=== PATIENT | male | born 1955 | race Caucasian/White ===

== ENCOUNTER → 2022-10-09 | Outpatient (CLI) | payer OTHER ==
[2022-10-09 10:16] LABS: Cholesterol 199 mg/dL (< 200); Creatine Kinase IFCC 106 U/L (39-308); HDL Cholesterol 59 mg/dL (40-59); LDL Cholesterol 127 mg/dL (< 100); Triglycerides 128 mg/dL (< 150)
== END | disposition home or self-care (01) ==
LOC: LAB 09:10
PROVIDERS: ATTEND Internal Medicine
DX: E78.5 Hyperlipidemia, unspecified (principal)
CPT/HCPCS: 36415; 82306; 82465; 82550; 83718; 83721; 84439; 84443; 84478

== ENCOUNTER → 2023-04-08 | Outpatient (CLI) | payer OTHER ==
[2023-04-08 09:38] LABS: Alanine Aminotransferase 25 U/L (7-40); Albumin 4.3 g/dL (3.2-4.8); Alkaline Phosphatase 65 U/L (46-116); Anion Gap 5 (5-15); Aspartate Aminotransferase 43 U/L (13-40); BUN/Creatinine Ratio 11.8 (10.0-20.0); Blood Urea Nitrogen 11 mg/dL (9-23); Calcium 9.4 mg/dL (8.5-10.1); Carbon Dioxide 28 mmol/L (20-30); Chloride 106 mmol/L (98-107); Cholesterol 198 mg/dL (< 200); Creatine Kinase IFCC 91 U/L (46-171); Glucose 123 mg/dL (74-106); LDL Cholesterol 123 mg/dL (< 100); Potassium 3.9 mmol/L (3.5-5.1); Sodium 139 mmol/L (136-145); Triglycerides 179 mg/dL (< 150)
[2023-04-08 09:39] LABS: Bilirubin, Total 0.4 mg/dL (0.2-1.0); HDL Cholesterol 51 mg/dL (40-59)
[2023-04-08 09:40] LABS: Total Protein 7.2 g/dL (5.7-8.2)
[2023-04-09 08:07] LABS: PSA Free 0.64 ng/mL; Prostate Specific Antigen 2.5 ng/mL (0.0-4.0)
== END | disposition home or self-care (01) ==
LOC: LAB 08:39
PROVIDERS: ATTEND Internal Medicine
DX: Z12.5 Encounter for screening for malignant neoplasm of prostate (principal); E55.9 Vitamin D deficiency, unspecified; E78.5 Hyperlipidemia, unspecified
CPT/HCPCS: 36415; 80053; 80061; 82306; 82550; 84154

== ENCOUNTER → 2023-06-10 | Outpatient (CLI) | payer OTHER ==
[2023-06-10 11:44] LABS: Alanine Aminotransferase 26 U/L (7-40); Albumin 4.8 g/dL (3.2-4.8); Alkaline Phosphatase 72 U/L (46-116); Anion Gap 6 (5-15); Aspartate Aminotransferase 49 U/L (13-40); BUN/Creatinine Ratio 12.4 (10.0-20.0); Blood Urea Nitrogen 12 mg/dL (9-23); Calcium 10.1 mg/dL (8.5-10.1); Carbon Dioxide 29 mmol/L (20-30); Chloride 104 mmol/L (98-107); Creatine Kinase IFCC 124 U/L (46-171); Glucose 104 mg/dL (74-106); LDL Cholesterol 96 mg/dL (< 100); Potassium 4.1 mmol/L (3.5-5.1); Sodium 139 mmol/L (136-145); Triglycerides 77 mg/dL (< 150)
[2023-06-10 11:45] LABS: Cholesterol 166 mg/dL (< 200); HDL Cholesterol 58 mg/dL (40-59)
[2023-06-10 11:46] LABS: Bilirubin, Total 0.7 mg/dL (0.2-1.0); Total Protein 7.7 g/dL (5.7-8.2)
== END | disposition home or self-care (01) ==
LOC: LAB 09:19
PROVIDERS: ATTEND Internal Medicine
DX: E78.5 Hyperlipidemia, unspecified (principal); E55.9 Vitamin D deficiency, unspecified; R73.9 Hyperglycemia, unspecified
CPT/HCPCS: 36415; 80053; 80061; 82306; 82550; 83036

== ENCOUNTER → 2024-07-13 | Outpatient (CLI) | payer OTHER ==
[2024-07-13 09:54] LABS: Basophils # (auto) 0 10 ^3/uL (0-0.2); Basophils % (auto) 0.5 % (0.0-2.0); Eosinophils # (auto) 0.1 10 ^3/uL (0-0.8); Hematocrit 41.5 % (41.0-53.0); Hemoglobin 14.1 g/dL (13.5-17.5); Lymphocytes # (auto) 1.8 10 ^3/uL (0.4-5.4); Lymphocytes % (auto) 37.7 % (10.0-50.0); Mean Corpuscular Hemoglobin 31.6 pg (28.0-32.0); Monocytes # (auto) 0.4 10 ^3/uL (0-1.3); Monocytes % (auto) 8.7 % (0.0-12.0); Neutrophils # (auto) 2.4 10 ^3/uL (1.6-8.6); Neutrophils % (auto) 51.1 % (37.0-80.0); Nucleated Red Blood Cells % 0.1 %; Platelet Count (auto) 185 10^3/uL (140-450); Red Blood Cells 4.47 10^6/uL (4.5-5.90); Red Cell Distribution Width 13.1 % (11.8-14.3); White Blood Cell 4.8 10^3/uL (4.4-10.8)
[2024-07-13 10:36] LABS: Alanine Aminotransferase 21 U/L (7-40); Albumin 4.5 g/dL (3.2-4.8); Alkaline Phosphatase 68 U/L (46-116); Anion Gap 6 (5-15); BUN/Creatinine Ratio 12.5 (10.0-20.0); Bilirubin, Total 0.4 mg/dL (0.2-1.0); Blood Urea Nitrogen 12 mg/dL (9-23); Calcium 10.2 mg/dL (8.7-10.4); Carbon Dioxide 29 mmol/L (20-31); Chloride 106 mmol/L (98-107); Cholesterol 161 mg/dL (< 200); Creatine Kinase IFCC 108 U/L (46-171); Glucose 96 mg/dL (74-106); LDL Cholesterol 85 mg/dL (< 100); Potassium 4.3 mmol/L (3.5-5.1); Sodium 141 mmol/L (136-145); Total Protein 7.3 g/dL (5.7-8.2); Triglycerides 99 mg/dL (< 150)
[2024-07-13 10:38] LABS: Aspartate Aminotransferase 41 U/L (13-40); HDL Cholesterol 61 mg/dL (40-59)
== END | disposition home or self-care (01) ==
LOC: LAB 09:20
PROVIDERS: ATTEND Internal Medicine
DX: Z12.11 Encounter for screening for malignant neoplasm of colon (principal); Z12.5 Encounter for screening for malignant neoplasm of prostate; Z13.9 Encounter for screening, unspecified; E78.5 Hyperlipidemia, unspecified; E55.9 Vitamin D deficiency, unspecified; R73.03 Prediabetes
CPT/HCPCS: 36415; 80053; 80061; 82306; 82550; 83036; 84153; 85025

== ENCOUNTER → 2024-07-14 | Outpatient (CLI) | payer OTHER | END | disposition home or self-care (01) | LOC: LAB 13:30 | PROVIDERS: ATTEND Internal Medicine | DX: Z00.00 Encounter for general adult medical examination without abnormal findings (principal); Z12.11 Encounter for screening for malignant neoplasm of colon; Z13.9 Encounter for screening, unspecified; R73.03 Prediabetes; E78.5 Hyperlipidemia, unspecified; Z12.5 Encounter for screening for malignant neoplasm of prostate; E55.9 Vitamin D deficiency, unspecified | CPT/HCPCS: 82270 ==

== ENCOUNTER 2025-01-18 09:20 | Outpatient (CLI) | payer OTHER ==
[2025-01-18 10:23] LABS: Alanine Aminotransferase 26 U/L (7-40); Albumin 4.4 g/dL (3.2-4.8); Alkaline Phosphatase 60 U/L (46-116); Anion Gap 6 (5-15); BUN/Creatinine Ratio 16.0 (10.0-20.0); Blood Urea Nitrogen 16 mg/dL (9-23); Calcium 10.2 mg/dL (8.7-10.4); Carbon Dioxide 31 mmol/L (20-31); Chloride 107 mmol/L (98-107); Glucose 91 mg/dL (74-106); Potassium 4.3 mmol/L (3.5-5.1); Sodium 144 mmol/L (136-145); Total Protein 6.7 g/dL (5.7-8.2); Triglycerides 128 mg/dL (< 150)
[2025-01-18 10:24] LABS: Cholesterol 133 mg/dL (< 200); Creatine Kinase IFCC 114 U/L (46-171); HDL Cholesterol 54 mg/dL (40-59)
[2025-01-18 10:25] LABS: Bilirubin, Total 0.5 mg/dL (0.2-1.0)
== END 2025-01-18 17:00 | disposition home or self-care (01) ==
LOC: LAB 09:20
PROVIDERS: ATTEND Internal Medicine
DX: E78.5 Hyperlipidemia, unspecified (principal); E55.9 Vitamin D deficiency, unspecified; R73.03 Prediabetes; Z12.11 Encounter for screening for malignant neoplasm of colon; Z13.9 Encounter for screening, unspecified
CPT/HCPCS: 36415; 80053; 80061; 82270; 82306; 82550; 83036